=== PATIENT | female | born 1985 ===

== ENCOUNTER 2019-11-20 21:53 | Observation (INO) | payer OTHER ==
[2019-11-20] MEDS ORDERED: Nalbuphine 10 MG/1 ML Vial IVPUSH PRN (22:18)
[2019-11-20] MEDS ORDERED: Carboprost Tromethamine 250 MCG/1 ML Amp IM PRN (22:18)
[2019-11-20] MEDS ORDERED: Misoprostol 200 MCG Tab PO PRN (22:18)
[2019-11-20] MEDS ORDERED: Lidocaine 1% 50 ML MDV INJECT PRN (22:18)
[2019-11-20] MEDS ORDERED: Tranexamic Acid 1,000 MG in Sodium Chloride 0.9% 100 ML IV PRN (22:18)
[2019-11-20] MEDS ORDERED: Methylergonovine 0.2 MG/1 ML Amp IM PRN (22:18)
[2019-11-20] MEDS ORDERED: Water For Irrigation,Sterile 1,000 ML Container IRR PRN (22:18)
[2019-11-20] MEDS ORDERED: Butorphanol 1 MG/ML SDV IVPUSH PRN (22:18)
[2019-11-20] MEDS ORDERED: Sodium Chloride 0.9% 10 ML Syringe FLUSH PRN (22:18)
[2019-11-20] MEDS ORDERED: Sodium Chloride 0.9% 2.5 ML Syringe FLUSH PRN (22:18)
[2019-11-20] MEDS ORDERED: Sodium Chloride 0.9% 10 ML SDV IV PRN (22:18)
[2019-11-20] MEDS ORDERED: Betamethasone Acetate/Betamethasone Sod Phosphate 30 MG/5 ML MDV IM ONE (22:21)
[2019-11-20] MEDS ORDERED: Lactated Ringers 1,000 ML IV SCH (22:30)
[2019-11-20] MEDS ORDERED: Ampicillin 2 GM in Sodium Chloride 0.9% 100 ML IV ONE (22:30)
[2019-11-20] MEDS ORDERED: Oxytocin/0.9 % Sodium Chloride 30 UNIT/500 ML BAG IV SCH (22:30)
--- NOTE | 2019-11-20 23:24 | PCM.LDHP ---
L&D History of Present Illness - General Date of Service: 11/20/19 Admit Problem/Dx: Patient Status Order with Admit Dx/Problem 11/20/19 22:18 Patient Status [ADT] Routine Admission Diagnosis/Problem Admission Diagnosis/Problem 11/20/19 23:19 34 yo presenting to L&D with her partner Shanelle at 34 weeks with grossly ruptured membranes, SVE 3 cm/50%/-3 cm per nurse report, AB+, Rubella immune, GBS unknown, Hepatitis C positive, amber q5-10 minutes and reporting increasing pain 11/20/19 23:23 Source of Information: Patient History Limitations: Reports: No Limitations - History of Present Illness Location, : Reports: Abdomen Quality: Reports: Ache Severity: Mild Associated Symptoms: Reports: vaginal fluid, large amount - Related Data Allergies/Adverse Reactions: Allergies Allergy/AdvReac Type Severity Reaction Status Date / Time No Known Allergies Allergy Verified 11/20/19 22:17 Home Medications: Home Meds Pnv No.95/Ferrous Fum/Folic AC [ Tablet] 1 tab PO DAILY 11/20/19 [ History] H&P Review of Systems - Review of Systems: Review Of Systems: See Below General: Reports: No Symptoms HEENT: Reports: No Symptoms Pulmonary: Reports: No Symptoms Cardiovascular: Reports: No Symptoms Gastrointestinal: Reports: No Symptoms Genitourinary: Reports: No Symptoms Musculoskeletal: Reports: No Symptoms Skin: Reports: No Symptoms Psychiatric: Reports: No Symptoms Neurological: Reports: No Symptoms Hematologic/Lymphatic: Reports: No Symptoms Immunologic: Reports: No Symptoms L&D Exam - Exam Exam: See Below - Vital Signs Weight: 170 lb - OB Specific Contraction Intensity: Mild to Moderate Movement: Active Heart Tones: Present Heart Rate (FHR) Variability: Moderate (6-25 bmp) - Kirk Score Kirk Score Cervix Position: Posterior Kirk Score Consistency: Medium Kirk Score Effacement: 31-50% Kirk Score Dilation: 3-4 cm Kirk Score Infant's Station: -3 Kirk Score Total: 4 - Exam General: Alert, Oriented, Cooperative Lungs: Normal Respiratory Effort GI/Abdominal Exam: Soft, Non-Tender Rectal Exam: Deferred Genitourinary: Deferred Back Exam: Normal Inspection, Full Range of Motion Extremities: Normal Inspection, Normal Range of Motion, Non-Tender, Normal Capillary Refill Skin: Warm, Dry, Intact Neurological: Strength Equal Bilateral, Normal Gait, Normal Speech, Normal Tone , Sensation Intact Psychiatric: Alert, Normal Affect, Normal Mood - Patient Data Lab Results Last 24 hrs: Laboratory Results - last 24 hr 11/20/19 Range/Units 22:57 WBC 9.53 (4.0-11.0) K/uL RBC 4.24 L (4.30-5.90) M/uL Hgb 12.8 (12.0-16.0) g/dL Hct 39.2 (36.0-46.0) % MCV 92.5 (80.0-98.0) fL MCH 30.2 (27.0-32.0) pg MCHC 32.7 (31.0-37.0) g/dL RDW Std Deviation 44.7 (28.0-62.0) fl RDW Coeff of Adan 13 (11.0-15.0) % Plt Count 231 (150-400) K/uL MPV 9.60 (7.40-12.00) fL Nucleated RBC % 0.0 /100WBC Nucleated RBCs # 0 K/uL Result Diagrams: 11/20/19 22:57 - Problem List (1) premature rupture of membranes (PPROM) with onset of labor within 24 hours of rupture in third trimester, antepartum SNOMED Code(s): 59181123760160483, [id number] ICD Code: O42.013 - PRETRM AMELIA ROM, [employer] W/N 24 HOURS OF RUPT, THIRD TRI Status: Acute Priority: High Current Visit: Yes Problem List Initiated/Reviewed/Updated: Yes Orders Last 24hrs: Active Orders 24 hr Category Date Time Status Patient Status [ADT] Routine ADT 11/20/19 22:18 Active Heart Tones [RC] CONTINUOUS Care 11/20/19 22:18 Active Non Stress Test [RC] PER UNIT ROUTINE Care 11/20/19 22:18 Active May Shower [RC] ASDIRECTED Care 11/20/19 22:18 Active Notify Provider [RC] PRN Care 11/20/19 22:18 Active Up ad Jackeline [RC] ASDIRECTED Care 11/20/19 22:18 Active Vaginal Exam [RC] PRN Care 11/20/19 22:18 Active Vital Signs [RC] PER UNIT ROUTINE Care 11/20/19 22:18 Active RPR (SYPHILIS SERO) W/ RFLX [REF] Routine Lab 11/20/19 22:57 Received TYPE AND SCREEN [BBK] Routine Lab 11/20/19 22:57 Received Ampicillin 1 gm Med 11/21/19 02:30 Active Sodium Chloride 0.9% [Normal Saline] 50 ml IV Q4H Butorphanol [Stadol] Med 11/20/19 22:18 Active 1 mg IVPUSH Q1H PRN Carboprost Tromethamine [Hemabate DS] Med 11/20/19 22:18 Active 250 mcg IM ASDIRECTED PRN Lactated Ringers [Ringers, Lactated] 1,000 ml Med 11/20/19 22:30 Active IV ASDIRECTED Lidocaine 1% [Xylocaine 1%] Med 11/20/19 22:18 Active 50 ml INJECT ONETIME PRN Methylergonovine [Methergine] Med 11/20/19 22:18 Active 0.2 mg IM ASDIRECTED PRN Nalbuphine [Nubain] Med 11/20/19 22:18 Active 10 mg IVPUSH Q1H PRN Oxytocin/0.9 % Sodium Chloride [Oxytocin 30 Unit/500 ML Med 11/20/19 22:30 Active -NS] 30 unit in 500 ml IV TITRATE Sodium Chloride 0.9% [Normal Saline] Med 11/20/19 22:18 Active 10 ml IV ASDIRECTED PRN Sodium Chloride 0.9% [Saline Flush] Med 11/20/19 22:18 Active 10 ml FLUSH ASDIRECTED PRN Sodium Chloride 0.9% [Saline Flush] Med 11/20/19 22:18 Active 2.5 ml FLUSH ASDIRECTED PRN Tranexamic Acid [Cyklokapron] 1,000 mg Med 11/20/19 22:18 Active Sodium Chloride 0.9% [Normal Saline] 100 ml IV ONETIME Water For Irrigation,Sterile [Sterile Water for Med 11/20/19 22:18 Active Irrigation] 1,000 ml IRR ASDIRECTED PRN miSOPROStoL [Cytotec] Med 11/20/19 22:18 Active 200 mcg PO ONETIME PRN Scalp Electrode [WOMSER] Per Unit Routine Oth 11/20/19 22:18 Ordered Peripheral IV Insertion Adult [OM.PC] Routine Oth 11/20/19 22:18 Ordered Resuscitation Status Routine Resus Stat 11/20/19 22:18 Ordered Medication Orders Butorphanol Tartrate (Stadol) 1 mg IVPUSH Q1H PRN PRN Reason: Pain Carboprost Tromethamine (Hemabate Ds) 250 mcg IM ASDIRECTED PRN PRN Reason: Post Hemorrhage Ampicillin Sodium 1 gm/ Sodium (Chloride) 50 mls @ 100 mls/hr IV Q4H [facility] Lactated Ringer's (Ringers, Lactated) 1,000 mls @ 150 mls/hr IV ASDIRECTED TATYANA Last Admin: 11/20/19 22:57 Dose: 150 mls/hr Oxytocin/Sodium Chloride (Oxytocin 30 Unit/500 Ml-Ns) 30 unit in 500 mls @ 500 mls/hr IV TITRATE [facility] Tranexamic Acid 1,000 mg/ (Sodium Chloride) 110 mls @ 660 mls/hr IV ONETIME PRN PRN Reason: Bleeding Lidocaine HCl (Xylocaine 1%) 50 ml INJECT ONETIME PRN PRN Reason: Laceration repair Methylergonovine Maleate (Methergine) 0.2 mg IM ASDIRECTED PRN PRN Reason: Post Hemorrhage Misoprostol (Cytotec) 200 mcg PO ONETIME PRN PRN Reason: Post Hemorrhage Nalbuphine HCl (Nubain) 10 mg IVPUSH Q1H PRN PRN Reason: Pain (severe 7-10) Sodium Chloride (Saline Flush) 10 ml FLUSH ASDIRECTED PRN PRN Reason: Keep Vein Open Sodium Chloride (Saline Flush) 2.5 ml FLUSH ASDIRECTED PRN PRN Reason: Keep Vein Open Sodium Chloride (Normal Saline) 10 ml IV ASDIRECTED PRN PRN Reason: IV Use Sterile Water (Sterile Water For Irrigation) 1,000 ml IRR ASDIRECTED PRN PRN Reason: delivery Assessment/Plan Comment:: A: 34 yo presenting to L&D with her partner Shanelle at 34 weeks with grossly ruptured membranes, SVE 3 cm/50%/-3 station cm per nurse report, AB+, Rubella immune, GBS unknown, Hepatitis C positive, amber q5-10 minutes and reporting increasing pain P: Start Ampicillin and give betamethasone, transfer to [facility], [facility] physician is Dr. Paty Khalil, Dr. Laurie rodarte
[2019-11-21] MEDS ORDERED: Ampicillin 1 GM in Sodium Chloride 0.9% 50 ML IV SCH (02:30)
== END 2019-11-20 23:55 ==
LOC: MW.OBCHECK 21:53 → MW.OB 21:53 → MW.OBCHECK 22:18
PROVIDERS: ADMIT Obstetrics & Gynecology; ATTEND Obstetrics & Gynecology
DX: O42.013 Preterm premature rupture of membranes, onset of labor within 24 hours of rupture, third trimester (principal); O98.413 Viral hepatitis complicating pregnancy, third trimester; B19.20 Unspecified viral hepatitis C without hepatic coma; O09.523 Supervision of elderly multigravida, third trimester; Z3A.34 34 weeks gestation of pregnancy
CPT/HCPCS: 36415; 85027; 86592; 86593; 86850; 86900; 86901; 96372; 96374; 96375; G0378; J0290; J0702; J7050; J7120